=== PATIENT | female | born 1965 | race Caucasian/White ===

== ENCOUNTER 2016-12-16 10:17 | Inpatient (IN) ==
[2016-12-12 12:42] LABS: Basophils # (Auto) 0 K/mcL (0.0-0.3); Basophils % (Auto) 0.5 % (0.0-2.0); Eosinophils # (Auto) 0.2 K/mcL (0.0-0.7); Eosinophils % (Auto) 2.1 % (0.0-7.0); Granulocytes % (Auto) 63.3 % (38.0-78.0); Lymphocytes # (Auto) 2.1 K/mcL (1.5-4.8); Lymphocytes % (Auto) 25.8 % (15.5-49.0); Mean Cell Volume 94.2 fL (80.0-100.0); Mean Corpuscular HGB Conc 33.7 g/dL (31.0-36.0); Mean Corpuscular Hemoglobin 31.8 pg (26.0-34.0); Monocytes # (Auto) 0.7 K/mcL (0.1-0.9); Monocytes % (Auto) 8.3 % (1.0-12.0); Platelet Count 242 K/mcL (140-440); RBC 4.77 M/mcL (4.00-5.20); Red Cell Distribution Width 13.1 % (11.5-14.5)
[2016-12-12 13:01] LABS: Appearance,Urine HAZY; Bilirubin,Urine NEG (NEG); Color,Urine YELLOW; Glucose,Urine (UA) NEGATIVE (NEG); Leukocyte Esterase,Urine NEG /uL (NEG); Nitrate,Urine NEG (NEG); Protein,Urine NEG (NEG); Specific Gravity,Urine 1.017 (1.000-1.035); Urine Blood NEG mg/dL (<0.03); Urobilinogen,Urine NEG (NEG)
[2016-12-12 13:18] LABS: Blood Urea Nitrogen 14 mg/dl (6-20)
[~2016-12-16 10:17] MED LIST: ACETAMINOPHEN 500 MG TABLET PO SCH; CELECOXIB 200 MG CAPSULE PO SCH; KETOROLAC 30 MG, ROPIVACAINE HCL/PF 49.5 ML, EPINEPHrine 0.5 MG, 0.9 % SODIUM CHLORIDE ... IJ ONE; PREGABALIN 75 MG CAPSULE PO SCH; ceFAZolin 1 GM VIAL IV SCH; oxyCODONE 10 MG TAB.ER.12H PO SCH
[2016-12-16] MEDS ORDERED: TRANEXAMIC ACID 1,000 MG/10 ML VIAL IV ONE ×2 (14:57→17:11)
[2016-12-16] MEDS ORDERED: fentaNYL 100 MCG/2 ML VIAL IV ONE (14:57)
[2016-12-16] MEDS ORDERED: ROPIVACAINE HCL/PF 20 ML VIAL IJ ONE (14:57)
[2016-12-16] MEDS ORDERED: LIDOCAINE HCL/PF 100 MG/5 ML SYRINGE IV ONE (14:57)
[2016-12-16] MEDS ORDERED: DEXAMETHASONE 10 MG/ML VIAL IV ONE (14:57)
[2016-12-16] MEDS ORDERED: ONDANSETRON 4 MG/2 ML VIAL IV ONE (14:57)
[2016-12-16] MEDS ORDERED: PROPOFOL 200 MG/20 ML VIAL IV ONE (14:57)
[2016-12-16] MEDS ORDERED: MIDAZOLAM 5 MG/5 ML VIAL IV ONE (14:57)
[2016-12-16] MEDS ORDERED: GENTAMICIN SULFATE 800 MG/20 ML VIAL IR ONE (15:29)
[2016-12-16] MEDS ORDERED: ONDANSETRON 4 MG/2 ML VIAL IV PRN ×2 (16:09→16:51)
[2016-12-16] MEDS ORDERED: PROMETHAZINE 25 MG/ML VIAL IM PRN (16:09)
[2016-12-16] MEDS ORDERED: PROMETHAZINE 25 MG/ML VIAL IV PRN (16:09)
[2016-12-16] MEDS ORDERED: MEPERIDINE 25 MG/ML SYRINGE IV PRN (16:09)
[2016-12-16] MEDS ORDERED: NALOXONE HCL 0.4 MG/ML VIAL IV PRN (16:09)
[2016-12-16] MEDS ORDERED: diphenhydrAMINE 50 MG/ML VIAL IV PRN (16:09)
[2016-12-16] MEDS ORDERED: ePHEDrine 50 MG/ML AMPUL IV PRN (16:09)
[2016-12-16] MEDS ORDERED: IPRATROPIUM/ALBUTEROL 3 ML AMPUL.NEB NEB PRN (16:09)
[2016-12-16] MEDS ORDERED: METHOCARBAMOL 1,000 MG/10 ML VIAL IV PRN (16:09)
[2016-12-16] MEDS ORDERED: MEPERIDINE 50 MG/ML SYRINGE IM PRN (16:09)
[2016-12-16] MEDS ORDERED: LACTATED RINGERS 250 ML IV PRN (16:09)
[2016-12-16] MEDS ORDERED: METOCLOPRAMIDE 10 MG/2 ML VIAL IV PRN (16:09)
[2016-12-16] MEDS ORDERED: BENZOCAINE/MENTHOL 1 LOZENGE PO PRN ×2 (16:09→16:51)
[2016-12-16] MEDS ORDERED: FLUMAZENIL 0.1 MG/ML ML IV PRN (16:09)
[2016-12-16] MEDS ORDERED: LACTATED RINGERS 1,000 ML IV SCH (16:15)
[2016-12-16] MEDS: fentaNYL 100 MCG/2 ML VIAL IV PRN ×4 (16:50→17:10)
--- NOTE | 2016-12-16 16:50 | Brief Operative Note ---
Date of procedure: 12/16/16 Pre-op diagnosis: Left knee djd Post-op diagnosis: same Procedure: Left knee Tka jhon robot Grafts/Implants: Yes Anesthesia: GETA Surgeon: Arjun Ladd Occ Med Physician: Mike Maldonado Estimated blood loss (cc): 50 Tourniquet Time (Minutes): 52 Specimens Removed/Pathology: none sent Condition: stable Disposition: PACU
[2016-12-16] MEDS ORDERED: ACETAMINOPHEN 325 MG TABLET PO PRN (16:51)
[2016-12-16] MEDS ORDERED: BISACODYL 10 MG SUPP.RECT PR PRN (16:51)
[2016-12-16] MEDS ORDERED: MAGNESIUM HYDROXIDE 30 ML ORAL.SUSP PO PRN (16:51)
[2016-12-16] MEDS ORDERED: POLYETHYLENE GLYCOL 3350 17 GM PACKET PO PRN (16:51)
[2016-12-16] MEDS ORDERED: IBUPROFEN 200 MG TABLET PO PRN (16:51)
[2016-12-16] MEDS ORDERED: FLEETS ADULT ENEMA PR PRN (16:51)
[2016-12-16] MEDS ORDERED: METHOCARBAMOL 750 MG TABLET PO PRN (16:51)
[2016-12-16] MEDS ORDERED: TRANEXAMIC ACID 1,000 MG/10 ML VIAL IV SCH (16:51)
[2016-12-16] MEDS: HYDROmorphone 2 MG/ML SYRINGE IV PRN ×3 (17:10→18:03)
--- NOTE | 2016-12-16 17:37 | XRay Report ---
HISTORY: Reason for Exam:Post-Op Total Knee y FINDINGS: There is a well positioned total knee prosthesis. No fracture is present. There are no abnormal soft tissue calcifications. IMPRESSION: Well-positioned left knee prosthesis Interpreted and Authenticated by: Abiodun Pearson 12/16/16
[2016-12-16] MEDS: 0.45 % SODIUM CHLORIDE 1,000 ML IV SCH (18:04)
[2016-12-16] MEDS: DOCUSATE SODIUM 100 MG CAPSULE PO SCH (20:26)
[2016-12-16] MEDS: ASPIRIN 325 MG ENTERIC COATED TABLET PO SCH (20:26)
[2016-12-16] MEDS: 0.9 % SODIUM CHLORIDE 10 ML SYRINGE IV SCH (20:27)
[2016-12-16] MEDS ORDERED: SENNOSIDES 1 TABLET PO SCH (21:00)
[2016-12-16] MEDS ORDERED: TEMAZEPAM 15 MG CAPSULE PO PRN (21:00)
[2016-12-16] MEDS: ceFAZolin 1 GM VIAL IV SCH (22:30)
[2016-12-16] MEDS: HYDROcodone/APAP 10/325MG TABLET PO PRN (22:31)
[2016-12-17] MEDS: HYDROcodone/APAP 10/325MG TABLET PO PRN ×3 (02:23→14:03)
[2016-12-17] MEDS: HYDROmorphone 2 MG/ML SYRINGE IV PRN (03:54)
[2016-12-17] MEDS: 0.45 % SODIUM CHLORIDE 1,000 ML IV SCH ×2 (03:54→16:42)
[2016-12-17] MEDS: ceFAZolin 1 GM VIAL IV SCH (06:11)
[2016-12-17] MEDS: 0.9 % SODIUM CHLORIDE 10 ML SYRINGE IV SCH ×2 (06:12→16:42)
--- NOTE | 2016-12-17 07:08 | Operative Note ---
DATE OF OPERATION: 12/16/2016 PREOPERATIVE DIAGNOSIS: Left knee degenerative arthritis in all three compartments. POSTOPERATIVE DIAGNOSIS: Left knee degenerative arthritis in all three compartments. PROCEDURE: Left total knee arthroplasty using RAHUL robot. SURGEON: Arjun Ladd MD [employer] OPERATOR: Mike Maldonado PA-C ANESTHESIA: General LMA anesthesia. COMPLICATIONS: None. ESTIMATED BLOOD LOSS: 50 mL. TOURNIQUET TIME: 52 minutes. IMPLANTS: Size 3 femur, size 3 tibial baseplate and size 9 poly with a 33 mm patellar button. DESCRIPTION OF PROCEDURE: The patient was brought to the operating room and put to sleep with general LMA anesthesia. Once asleep, the patient had the left leg sterilely prepped and draped in the usual sterile fashion. Timeout was performed. We confirmed this was the operative site, and procedure was confirmed. Preop antibiotics and tranexamic acid had been given. After being sterilely prepped and draped, and Ioban placed over the skin, we made a midline incision, a mid vastus approach performed. This showed severe arthritis of all three compartments. We then proceeded with two pins above and below the knee and placed an intra-articular pin on the femur and tibia and then registered the center of hip rotation, registered the medial and lateral malleoli, registered the pins within the knee and 30 point registration on the femur and tibia. We balanced the knee at 15 and 90 degrees. Once this was balanced and spurs had been removed we then brought in the robot, registered the robot and made our cuts on the femur, registered the tibia in the robot once more and made our tibial cuts. The meniscus was removed. Bony fragments were removed. We removed osteophytes posteriorly. At this point, we then brought in the tibial baseplate, tapped into place setting rotation using the robot and then the femur was set with a size 3 component. We trialed sizes 11 and 9. The 9 seemed to be the most appropriate given the patient's tension and extension. It restored extension but about 1 degree tighter in extension than preoperatively. We then prepared the patella measuring 22 mm in total thickness. This was cut to 12.5 mm and then we placed a 33 mm patellar button. This was cemented into place to perfectly cover the patella. We irrigated thoroughly and then cemented into place all components with bone cement after preparing the bone with pulse lavage as well as the CarboJet to try the bone and get any fatty remaining tissue from the bony penetration. We cemented into place, removed excess cement. A 9 mm poly was placed. The knee was placed in full extension. The patella was prepped and then we placed a 33 mm patellar button. There was no complication. The patient tolerated this well. [email or web address] Job ID: [id number] Doc ID: [id number] Arjun Ladd MD
--- NOTE | 2016-12-17 07:37 | Orthopedic Progress Note ---
Subjective Patient information: Note initiated : 12/17/16 at 7:36 am Service Date, if different from initiated Date: [] Patient: Nathalie Henry 51 y/o F admitted on 12/16/16 for Left Total Knee Arthroplasty w/ Andre Robot *!physical therapy director!*. Chief Complaint: [Pt is stable this morning on post operative day 1 without any significant concerns or complaints. Patients vital signs have remained stable. Patients dressing is dry and exhibits a grossly intact neurovascular and neuromotor exam. Patients 10 point ROS is otherwise negative. ] Objective Vital signs: Vital Signs Temp Pulse Resp BP BP Pulse Ox 12/17/16 07:30 96 12/17/16 04:00 98.6 F 70 14 112/70 96 12/16/16 23:15 97.9 F 66 14 102/66 97 12/16/16 22:30 97 12/16/16 20:38 68 102/69 91 12/16/16 20:00 98 12/16/16 19:38 61 113/80 98 12/16/16 19:08 75 127/80 99 12/16/16 18:24 64 138/48 93 12/16/16 18:09 75 146/102 94 12/16/16 17:54 76 138/76 97 12/16/16 17:40 97.2 F 68 16 126/68 100 12/16/16 17:20 97.2 F 68 16 127/81 100 12/16/16 17:05 97.2 F 64 16 128/72 100 12/16/16 16:55 97.2 F 80 16 129/80 100 12/16/16 16:50 97.2 F 92 H 18 113/89 95 12/16/16 12:00 97.3 F 18 136/76 95 12/16/16 10:00 97.1 F 18 123/79 95 Intake and Output 12/16/16 12/17/16 12/17/16 21:59 05:59 13:59 Intake Total 1800 / 1800 1253 / 1253 Output Total 900 / 900 450 / 450 Balance 1800 / 1800 353 / 353 -450 / -450 Intake: IV 983 / 983 Sodium Chloride 0.45% 1,000 ml 983 / 983 @ 100 mls/hr IV .Q10H [facility] Rx#: [id number] Oral 270 / 270 IV - Manual Only 1800 / 1800 Output: Void Amount 900 / 900 450 / 450 Other: # Voids 1 1 Weight 224 lb 8 oz Intake & Output: Intake & Output 12/16/16 12/17/16 12/17/16 21:59 05:59 13:59 Intake Total 1800 / 1800 1253 / 1253 Output Total 900 / 900 450 / 450 Balance 1800 / 1800 353 / 353 -450 / -450 Weight 224 lb 8 oz Intake: IV 983 / 983 Sodium Chloride 0.45% 1,000 ml 983 / 983 @ 100 mls/hr IV .Q10H [facility] Rx#: [id number] Oral 270 / 270 IV - Manual Only 1800 / 1800 Output: Void Amount 900 / 900 450 / 450 Other: # Voids 1 1 Incision: Yes healing Incision clean and dry: Yes Dressing: Yes clean Neurological exam IM: Yes motor sensory intact, Yes neurovascular intact Extremities exam IM: Yes Foot pink and warm, Yes neurovascular intact - Labs CBC & BMP: 12/17/16 04:47 12/12/16 10:12 Labs: Orthopedic Labs 12/12/16 10:12 PT 12.5 INR 0.9 APTT 33 12/17/16 12/12/16 04:47 10:12 Hgb 15.2 H Hct 39.1 45.0 Assessment and Plan (1) Hx of total knee arthroplasty The patient has been educated regarding dressing care, Physical Therapy recommendations, home exercises, restrictions, and follow up appointments. The patient has had all necessary DME prescribed. The patient has remained stable during their hospital course. The patient was discharge with a stable exam. Status: Acute
--- NOTE | 2016-12-17 07:39 | Discharge Summary ---
Ortho Discharge - TKA - Patient Instructions Diet: Regular Diet Activity: activity as tolerated, weight bearing as tolerated Total Knee Protocol: For Total Knee: Start ROM KIRK with stationary bike or rocking chair. Work on gaining full extension of knee. Posterior dislocation precautions provided. Hip abductor strengthening and gait training instructions provided. Apply Cryocuff as instructed. Dressing Care: May shower in 2 days Patient Education: Total Knee Replacement (DC) Additional Instructions: CPM for home use - Problem Maintenance (1) Hx of total knee arthroplasty Status: Acute - Follow Up Plan Follow Up Appointments: Mike Maldonado PA-C [Physician Bottle Washer] - 12/31/16 9:30 am Disposition: Home, Self-Care Prognosis: Good Rehab Potential: Good I certify that the patient requires SNF services: No Overall status at discharge: patient is progressing back to baseline - Orders For Discharge Prescriptions: Aspirin [Ecotrin] 325 mg PO BID #60 tab.ec Docusate Sodium [Colace] 100 mg PO BID #60 cap HYDROcodone/APAP 10/325MG [[place] 10/325Mg] 1 - 2 tab PO Q4HP PRN #75 tab PRN Reason: Pain
[2016-12-17] MEDS: DOCUSATE SODIUM 100 MG CAPSULE PO SCH (08:48)
[2016-12-17] MEDS: ASPIRIN 325 MG ENTERIC COATED TABLET PO SCH (08:48)
[2016-12-17] MEDS ORDERED: ONDANSETRON ODT 4 MG TABLET SL ONE (12:25)
== END 2016-12-17 18:10 | disposition home or self-care (01) | DRG 470 ==
LOC: MEDSUR 10:17
PROVIDERS: ADMIT Orthopaedic Surgery; ATTEND Orthopaedic Surgery

== ENCOUNTER 2017-01-28 14:30 | Inpatient (IN) ==
[2017-01-28 17:12] LABS: Basophils # (Auto) 0 K/mcL (0.0-0.3); Basophils % (Auto) 0.7 % (0.0-2.0); Eosinophils # (Auto) 0.1 K/mcL (0.0-0.7); Eosinophils % (Auto) 2.3 % (0.0-7.0); Granulocytes % (Auto) 58.4 % (38.0-78.0); Lymphocytes # (Auto) 1.8 K/mcL (1.5-4.8); Lymphocytes % (Auto) 29.2 % (15.5-49.0); Mean Cell Volume 91.8 fL (80.0-100.0); Mean Corpuscular HGB Conc 34.3 g/dL (31.0-36.0); Mean Corpuscular Hemoglobin 31.5 pg (26.0-34.0); Monocytes # (Auto) 0.6 K/mcL (0.1-0.9); Monocytes % (Auto) 9.4 % (1.0-12.0); Platelet Count 211 K/mcL (140-440); Red Cell Distribution Width 12.4 % (11.5-14.5)
[2017-01-28 17:29] LABS: Blood Urea Nitrogen 17 mg/dl (6-20)
[2017-01-30 12:22] LABS: Appearance,Urine CLEAR; Bilirubin,Urine NEG (NEG); Color,Urine YELLOW; Glucose,Urine (UA) NEGATIVE (NEG); Leukocyte Esterase,Urine NEG /uL (NEG); Nitrate,Urine NEG (NEG); Protein,Urine NEG (NEG); Specific Gravity,Urine 1.017 (1.000-1.035); Urine Blood NEG mg/dL (<0.03); Urobilinogen,Urine NEG (NEG)
[2017-02-03] MEDS ORDERED: CELECOXIB 200 MG CAPSULE PO SCH ×2 (05:00→13:15)
[2017-02-03] MEDS ORDERED: ACETAMINOPHEN 500 MG TABLET PO SCH ×2 (05:00→13:15)
[2017-02-03] MEDS ORDERED: PREGABALIN 75 MG CAPSULE PO SCH ×2 (05:00→13:15)
[2017-02-03] MEDS ORDERED: oxyCODONE 10 MG TAB.ER.12H PO SCH ×2 (05:00→13:15)
[2017-02-03] MEDS ORDERED: ceFAZolin 1 GM VIAL IV SCH ×2 (05:00→13:15)
[2017-02-03] MEDS ORDERED: KETOROLAC 30 MG, ROPIVACAINE HCL/PF 49.5 ML, EPINEPHrine 0.5 MG, 0.9 % SODIUM CHLORIDE ... IJ SCH (06:30)
--- NOTE | 2017-02-03 19:24 | Brief Operative Note ---
Date of procedure: 02/03/17 Pre-op diagnosis: left knee djd Post-op diagnosis: same Procedure: left tka with jhon Grafts/Implants: Yes Anesthesia: GETA Complications: none Surgeon: Arjun Ladd Paper Tester: Mike Maldonado Estimated blood loss (cc): 55 Tourniquet Time (Minutes): 50 Specimens Removed/Pathology: none sent Condition: stable Disposition: PACU
[2017-02-03] MEDS ORDERED: ACETAMINOPHEN 325 MG TABLET PO PRN (19:25)
[2017-02-03] MEDS ORDERED: TRANEXAMIC ACID 1,000 MG/10 ML VIAL IV ONE ×2 (19:25→19:45)
[2017-02-03] MEDS ORDERED: TEMAZEPAM 15 MG CAPSULE PO PRN (19:25)
[2017-02-03] MEDS ORDERED: BENZOCAINE/MENTHOL 1 LOZENGE PO PRN (19:25)
[2017-02-03] MEDS ORDERED: POLYETHYLENE GLYCOL 3350 17 GM PACKET PO PRN (19:25)
[2017-02-03] MEDS ORDERED: ONDANSETRON 4 MG/2 ML VIAL IV PRN ×2 (19:25→20:23)
[2017-02-03] MEDS ORDERED: FLEETS ADULT ENEMA PR PRN (19:25)
[2017-02-03] MEDS ORDERED: MAGNESIUM HYDROXIDE 30 ML ORAL.SUSP PO PRN (19:25)
[2017-02-03] MEDS ORDERED: BISACODYL 10 MG SUPP.RECT PR PRN (19:25)
[2017-02-03] MEDS ORDERED: LIDOCAINE HCL/PF 100 MG/5 ML SYRINGE IV ONE (19:45)
[2017-02-03] MEDS ORDERED: PHENYLEPHRINE 10 MG/ML VIAL IV ONE (19:45)
[2017-02-03] MEDS ORDERED: PROPOFOL 200 MG/20 ML VIAL IV ONE (19:45)
[2017-02-03] MEDS ORDERED: EPINEPHrine 1 MG/ML ML IV ONE (19:45)
[2017-02-03] MEDS ORDERED: BUPIVACAINE PF 0.5% 30 ML VIAL IJ ONE (19:45)
[2017-02-03] MEDS ORDERED: GLYCOPYRROLATE 0.2 MG/ML VIAL IV ONE (19:45)
[2017-02-03] MEDS ORDERED: MIDAZOLAM 5 MG/5 ML VIAL IV ONE (19:45)
[2017-02-03] MEDS ORDERED: ONDANSETRON 4 MG/2 ML VIAL IV ONE (19:45)
[2017-02-03] MEDS ORDERED: KETAMINE 100 MG/ML ML IV ONE (19:45)
[2017-02-03] MEDS ORDERED: DEXAMETHASONE 10 MG/ML VIAL IV ONE (19:45)
[2017-02-03] MEDS ORDERED: GENTAMICIN SULFATE 800 MG/20 ML VIAL IR ONE (20:00)
[2017-02-03] MEDS ORDERED: METHOCARBAMOL 1,000 MG/10 ML VIAL IV PRN (20:23)
[2017-02-03] MEDS ORDERED: MEPERIDINE 25 MG/ML SYRINGE IV PRN (20:23)
[2017-02-03] MEDS ORDERED: fentaNYL 100 MCG/2 ML VIAL IV PRN (20:23)
[2017-02-03] MEDS ORDERED: IPRATROPIUM/ALBUTEROL 3 ML AMPUL.NEB NEB PRN (20:23)
[2017-02-03] MEDS ORDERED: LACTATED RINGERS 1,000 ML IV SCH (20:30)
[2017-02-03] MEDS ORDERED: SENNOSIDES 1 TABLET PO SCH (21:00)
[2017-02-03] MEDS: KETOROLAC 15 MG/ML VIAL IV SCH (21:36)
[2017-02-03] MEDS: DOCUSATE SODIUM 100 MG CAPSULE PO SCH (22:30)
[2017-02-03] MEDS: ceFAZolin 1 GM VIAL IV SCH (22:30)
[2017-02-03] MEDS: ASPIRIN 325 MG ENTERIC COATED TABLET PO SCH (22:30)
[2017-02-03] MEDS: 0.45 % SODIUM CHLORIDE 1,000 ML IV SCH (22:31)
[2017-02-03] MEDS: 0.9 % SODIUM CHLORIDE 10 ML SYRINGE IV SCH (22:31)
[2017-02-03] MEDS: HYDROcodone/APAP 10/325MG TABLET PO PRN (23:04)
[2017-02-03] MEDS: HYDROmorphone 2 MG/ML SYRINGE IV PRN (23:42)
[2017-02-04] MEDS: HYDROcodone/APAP 10/325MG TABLET PO PRN ×4 (03:52→16:04)
[2017-02-04] MEDS: ceFAZolin 1 GM VIAL IV SCH (05:05)
[2017-02-04] MEDS: 0.45 % SODIUM CHLORIDE 1,000 ML IV SCH ×2 (05:05→16:24)
[2017-02-04] MEDS: 0.9 % SODIUM CHLORIDE 10 ML SYRINGE IV SCH ×2 (05:07→14:05)
[2017-02-04] MEDS: KETOROLAC 15 MG/ML VIAL IV SCH ×3 (05:07→17:49)
[2017-02-04] MEDS: HYDROmorphone 2 MG/ML SYRINGE IV PRN (05:07)
--- NOTE | 2017-02-04 06:45 | XRay Report ---
CLINICAL INFORMATION: Post-Op Total Knee COMPARISON: None. FINDINGS: Total knee prostheses is anatomically aligned. No osseous abnormality. Soft tissue swelling seen as expected IMPRESSION: Negative Interpreted and Authenticated by: Stanley Banuelos 02/04/17
--- NOTE | 2017-02-04 07:44 | Orthopedic Progress Note ---
Subjective Patient information: Note initiated : 02/04/17 at 7:43 am Service Date, if different from initiated Date: [] Patient: Nathalie Henry 51 y/o F admitted on 02/03/17 for Arthroplasty Knee Total Right jhon. Chief Complaint: [Pt is stable this morning on post operative day 1 without any significant concerns or complaints. Patients vital signs have remained stable. Patients dressing is dry and exhibits a grossly intact neurovascular and neuromotor exam. Patients 10 point ROS is otherwise negative. ] Objective Vital signs: Vital Signs Temp Pulse Resp BP Pulse Ox 02/04/17 07:35 95 02/04/17 04:00 98.4 F 80 16 110/73 93 02/04/17 03:00 93 02/04/17 00:45 99 H 118/88 92 02/03/17 23:45 81 122/78 95 02/03/17 23:25 95 02/03/17 23:15 77 113/71 93 02/03/17 22:45 79 115/78 95 02/03/17 22:30 75 119/78 96 02/03/17 22:15 92 H 130/87 96 02/03/17 22:00 97.8 F 87 16 144/85 98 02/03/17 21:42 98.2 F 16 113/59 97 02/03/17 21:28 98.2 F 16 109/89 97 02/03/17 21:13 97.9 F 16 113/59 97 02/03/17 12:06 97.5 F 16 128/79 97 Intake and Output 02/03/17 02/04/17 02/04/17 21:59 05:59 13:59 Intake Total 580 / 580 Output Total 400 / 400 1603 / 1603 Balance -400 / -400 -1023 / -1023 Intake: Oral 580 / 580 Output: Void Amount 400 / 400 1600 / 1600 # of times incontinent of urine 3 / 3 Other: Meal Dinner Percent of Meal Consumed 100% Feeding Ability Independent Weight 204 lb 219 lb Intake & Output: Intake & Output 02/03/17 02/04/17 02/04/17 21:59 05:59 13:59 Intake Total 580 / 580 Output Total 400 / 400 1603 / 1603 Balance -400 / -400 -1023 / -1023 Weight 204 lb 219 lb Intake: Oral 580 / 580 Output: Void Amount 400 / 400 1600 / 1600 # of times incontinent of urine 3 / 3 Other: Meal Dinner Percent of Meal Consumed 100% Feeding Ability Independent Incision: Yes healing Incision clean and dry: Yes Dressing: Yes clean Weight bearing status: partial Neurological exam IM: Yes motor sensory intact, Yes neurovascular intact Extremities exam IM: Yes Foot pink and warm, Yes neurovascular intact - Labs CBC & BMP: 02/04/17 04:35 01/28/17 15:15 Labs: Orthopedic Labs 01/28/17 15:15 PT 13.4 INR 1.0 APTT 31 02/04/17 01/28/17 04:35 15:15 Hgb 13.2 Hct 37.4 38.6 Assessment and Plan (1) Hx of total knee arthroplasty The patient has been educated regarding dressing care, Physical Therapy recommendations, home exercises, restrictions, and follow up appointments. The patient has had all necessary DME prescribed. The patient has remained stable during their hospital course. The patient was discharge with a stable exam. Status: Acute
--- NOTE | 2017-02-04 07:47 | Discharge Summary ---
Ortho Discharge - TKA - Patient Instructions Diet: Regular Diet Activity: activity as tolerated, weight bearing as tolerated Total Knee Protocol: For Total Knee: Start ROM KIRK with stationary bike or rocking chair. Work on gaining full extension of knee. Posterior dislocation precautions provided. Hip abductor strengthening and gait training instructions provided. Apply Cryocuff as instructed. Dressing Care: May shower in 3 days, Aquacel Ag - leave on for 5 days Patient Education: Total Knee Replacement (DC) Additional Instructions: CPM for home use - Problem Maintenance (1) Hx of total knee arthroplasty Status: Acute - Follow Up Plan Follow Up Appointments: Arjun Ladd MD [Physician] - 02/18/17 8:40 am Disposition: Home, Self-Care Prognosis: Good Rehab Potential: Good I certify that the patient requires SNF services: No Overall status at discharge: patient is progressing back to baseline - Orders For Discharge Prescriptions: Docusate Sodium [Colace] 100 mg PO BID #60 cap HYDROcodone/APAP 10/325MG [[place] 10/325Mg] 1 - 2 tab PO Q4HP PRN #75 tab PRN Reason: Pain Level 3-6
[2017-02-04] MEDS: DOCUSATE SODIUM 100 MG CAPSULE PO SCH (08:42)
[2017-02-04] MEDS: ASPIRIN 325 MG ENTERIC COATED TABLET PO SCH (08:42)
--- NOTE | 2017-02-18 09:32 | Operative Note ---
DATE OF OPERATION: 02/03/2017 PREOPERATIVE DIAGNOSIS: Right knee degenerative arthritis throughout. POSTOPERATIVE DIAGNOSIS: Right knee degenerative arthritis throughout. PROCEDURE: Right RAHUL total knee arthroplasty. SURGEON: Arjun Ladd MD BUSINESS MACHINE MECHANIC: Mike Maldonado PA-C ANESTHESIA: General LMA anesthesia. COMPLICATIONS: None. DESCRIPTION OF PROCEDURE: The patient was brought to the operating room and put to sleep with general LMA anesthesia. Once asleep, the patient had the right knee sterilely prepped and draped in the usual sterile fashion. Once this was done, we confirmed the operative site by initials, timeout, consent form and x-rays. Preop antibiotics and tranexamic acid had been given. The leg was exsanguinated and we inflated the tourniquet to 200 pounds of pressure. Midline incision on the right knee was performed. This showed severe arthritis throughout the knee. At this point, we proceeded with the RAHUL robot total knee, two pins above and below the knee were placed, 30 points registration on the femur and tibia, medial and lateral malleolus and center of hip rotation was performed. Once the balancing had been performed, osteophytes removed and positioned, the size of implants was all calculated. This was then brought in, the robot was registered and then we made our cuts on the femur and tibia. The components were then set by the robot on the tibial rotational and was punched into place, spurs posteriorly were removed and meniscus remnants were removed. We preserved the posterior crucial ligament. With this, we trialed the components and they fit very nicely with a Triathlon knee. The patella was resurfaced. Total thickness measured 23 mm. This was cut to 13-1/2 mm and then we put into place a 36 mm patellar button. Once done, we then cemented into place all the above-mentioned components. These were cemented. The knee was kept at 45 degrees until cement had dried and the final implant of poly was inserted. We reinspected the knee for any bone cement debris or bone. We irrigated thoroughly and deflated the tourniquet at about 55 minutes. There was no complication. The capsule was closed, the mid vastus approach with #2 Stratafix. The skin was closed with 2-0 Vicryl and adhesive closure. The patient tolerated this well without complication. [email or web address] Job ID: [id number] Doc ID: [id number] Arjun Ladd MD
== END 2017-02-04 18:45 | disposition home or self-care (01) ==
LOC: MEDSUR 02-03 12:06
PROVIDERS: ADMIT Orthopaedic Surgery; ATTEND Orthopaedic Surgery